=== PATIENT | male | born 1995 | race Caucasian/White ===

== ENCOUNTER 2016-09-06 20:53 | Emergency (ER) | payer OTHER ==
[2016-09-06] MEDS ORDERED: PROPARACAINE HCL 0.5% 300 GTTS/BOT SOLN.DROP ONE (22:54)
[2016-09-06] MEDS ORDERED: HYDROCODONE/ACETAMINOPHEN 5/325MG TABLET ONE (23:40)
== END 2016-09-07 00:01 | disposition home or self-care (01) ==
LOC: ED 20:53
DX: S05.02XD Injury of conjunctiva and corneal abrasion without foreign body, left eye, subsequent encounter (principal); H11.32 Conjunctival hemorrhage, left eye; V89.2XXD Person injured in unspecified motor-vehicle accident, traffic, subsequent encounter